=== PATIENT | female | born 1945 | race Caucasian/White ===

== ENCOUNTER → 2016-04-25 | Outpatient (CLI) | payer MEDICARE, OTHER ==
[~2016-04-25] MED LIST: CELEBREX PO; COREG3.125 MG PO; COREG6.25 MG PO; COUMADIN PO; COUMADIN5 MG PO; COZAAR PO; DIOVAN40 MG PO; ESTRACE PO; FLECAINIDE ACE100 MG PO; HYDROCHLOROTH12.5 M1 PO; HYDROCHLOROTH12.5 MG PO; KEPPRA500 MG PO; LEVOTHYROXINE25 MC1 PO; NORCO 5/325 TAB1 TAB PO; SINGULAIR PO; TOPROL XL PO; TYLENOL #3 PO; TYLENOL ARTHRITIS PO
--- NOTE | ~2016-04-25 | EKG ---
PATIENT: CALISTA MARROQUIN UNIT #: [id number] Ventricular Rate: 90 BPM Atrial Rate: 127 BPM QRS Duration: 132 ms Q-T Interval: 376 ms QTC Calculation(Bezet): 459 ms Calculated R [place]: -43 degrees Calculated T [place]: 83 degrees Diagnosis Line: Atrial fibrillation Diagnosis Line: Left axis deviation Diagnosis Line: Non-specific intra-ventricular conduction block Diagnosis Line: Nonspecific T wave abnormality , probably Diagnosis Line: digitalis effect Diagnosis Line: Abnormal ECG Diagnosis Line: No previous ECGs available Diagnosis Line: Confirmed by BRITTANI WHALEN MD ([id number]) on 04/26/2016 Diagnosis Line: 5:57:07 PM INTERPRETING MD: MARLEE SUERO
--- NOTE | ~2016-04-25 | EKG ---
PATIENT: CALISTA MARROQUIN UNIT #: [id number] Ventricular Rate: 66 BPM Atrial Rate: 66 BPM P-R Interval: 256 ms QRS Duration: 118 ms Q-T Interval: 462 ms QTC Calculation(Bezet): 484 ms P [place]: 22 degrees Calculated R [place]: -39 degrees Calculated T [place]: 14 degrees Diagnosis Line: Sinus rhythm with 1st degree A-V block Diagnosis Line: Left axis deviation Diagnosis Line: Non-specific intra-ventricular conduction delay Diagnosis Line: T wave abnormality, consider anterior ischemia Diagnosis Line: Prolonged QT Diagnosis Line: Abnormal ECG Diagnosis Line: When compared with ECG of 25-APR-2016 08:43, Diagnosis Line: Sinus rhythm has replaced Atrial fibrillation Diagnosis Line: Confirmed by BRITTANI WHALEN MD ([id number]) on 04/26/2016 Diagnosis Line: 5:57:31 PM INTERPRETING MD: MARLEE SUERO
--- NOTE | ~2016-04-25 | OR ---
Unit #: [id number] #: [id number] Patient: CALISTA MARROQUIN [id number] [address] [address] [id number] O MR#: [id number] NAME: CALISTA MARROQUIN ROOM: Date of Procedure: 04/25/2016 Admission Date: 04/25/2016 Surgeon: Jonathan Schwartz M.D. : 1945 Attending Physician: Jonathan Schwartz M.D. Referring Physician: Jonathan Schwartz M.D. Primary Care Physician: Perla Jernigan M.D. OPERATIVE REPORT PROCEDURE PERFORMED Direct current shock cardioversion. INDICATION FOR PROCEDURE Atrial fibrillation, new onset. DESCRIPTION OF PROCEDURE The patient was brought to the cardiac catheterization lab, where telemetry and pulse oximetry were established. Rhythm strip revealed atrial fibrillation with a rapid ventricular response. The patient was given 4 mg of intravenous Versed in a graded manner and 100 mcg of intravenous fentanyl. Using 250 joules per second of biphasic current, DC shock cardioversion was performed, which converted rhythm to normal sinus. No arrhythmias were precipitated. Blood pressure response was normal. PLAN The patient would be sent home on the following medicines; Singulair 10 mg daily, carvedilol 12.5 mg p.o. b.i.d., Cozaar 50 mg daily, Tylenol No. 3 q.6 hours p.r.n. for pain, levothyroxine 25 mcg daily, Coumadin 7.5 mg daily, hydrochlorothiazide 12.5 mg daily, and flecainide acetate 100 mg p.o. b.i.d. Dictated by... Jonathan Schwartz M.D. AKU/mag TD: 04/25/2016 23:45 JOB #: [id number] CC: Umu Hickman M.D. Unit #: [id number] #: [id number] Patient: CALISTA MARROQUIN OPERATIVE REPORT X Ummat,Jonathan K MD X PROCEDURE OPERATIVE NOTE
[2016-04-25 08:26] LABS: HEMATOCRIT 41.5 % (35.0-45.0); HEMOGLOBIN 14.1 gm/dL (12.0-16.0); MEAN CELL VOLUME 94.2 FL (83-96); MEAN CORPUSCULAR HGB CONC 33.9 g/dL (30-36); MEAN PLATELET VOLUME 9.8 FL (6.5-11.5); RED BLOOD COUNT 4.41 X10e (3.90-5.30); WHITE BLOOD COUNT 6.6 X10e3 (4.0-10.5)
[2016-04-25 08:37] LABS: INR 2.5; PARTIAL THROMBOPLASTIN TIME 35.3 SECONDS (23.5-31.3); PROTHROMBIN TIME (PATIENT) 26.7 SECONDS (9.6-11.5)
[2016-04-25 08:49] LABS: GLOM FILT RATE Estimated 58.1 mL/min (>60); POTASSIUM 4.3 mmol/L (3.5-5.1)
== END | disposition home or self-care (01) ==
LOC: CCVL 07:52
PROVIDERS: Internal Medicine Cardiovascular Disease
DX: I48.91 Unspecified atrial fibrillation (principal); I25.10 Atherosclerotic heart disease of native coronary artery without angina pectoris; J45.909 Unspecified asthma, uncomplicated; Z79.01 Long term (current) use of anticoagulants; I10 Essential (primary) hypertension; K21.9 Gastro-esophageal reflux disease without esophagitis; I73.9 Peripheral vascular disease, unspecified; M19.90 Unspecified osteoarthritis, unspecified site; Z88.1 Allergy status to other antibiotic agents; Z88.8 Allergy status to other drugs, medicaments and biological substances
CPT/HCPCS: 36415; 80048; 85027; 85610; 85730; 92960; 93005; J0461; J2250; J2310; J3010